=== PATIENT | female | born 1965 | race Caucasian/White ===

== ENCOUNTER 2016-09-18 17:16 | Emergency (ER) | payer MEDICARE, OTHER ==
[~2016-09-18] VITALS: Ht 152.4 cm; Wt 64.8 kg
[~2016-09-18 17:16] MED LIST: ASPI81TA3 PO; ATOR20TA38 PO; IBUP800T25 PO; OMEP40CA6 PO; SENN-53 PO; TRAM50TA2 PO
[2016-09-18 17:22] VITALS: Ht 152.4 cm; Wt 64.8 kg
== END 2016-09-18 19:53 | disposition left against medical advice (07) ==
LOC: FTE 17:16
DX: Z53.21 Procedure and treatment not carried out due to patient leaving prior to being seen by health care provider (principal)

== ENCOUNTER 2016-10-31 21:16 | Emergency (ER) | payer MEDICARE, OTHER ==
[~2016-10-31] VITALS: Ht 160 cm; Wt 63.5 kg
[2016-10-31 21:20] VITALS: Ht 160 cm; Wt 63.5 kg
[2016-10-31] MEDS ORDERED: KETOROLAC 30 MG INJ IV STA (21:52)
[2016-10-31] MEDS ORDERED: METOCLOPRAMIDE 10 MG INJ IV ONE (22:00)
[2016-10-31] MEDS ORDERED: DIPHENHYDRAMINE 50 MG INJ IV ONE (22:00)
[2016-10-31] MEDS ORDERED: SOD CHLORIDE 0.9% 1,000 ML IV ONE (22:00)
--- NOTE | 2016-10-31 22:52 | RADRPT ---
PROCEDURE: CT Brain without contrast. CLINICAL INDICATION: Left ear pain and head pain TECHNIQUE: A multiplanar CT of the brain was performed on a CT scanner utilizing axial imaging fro m the skull base through the vertex without IV contrast. The CTDIvol is 45.01 mGy and the DLP is 72 0.23 mGycm. One or more of the following dose reduction techniques were utilized: Automated exposu re control, adjustment of the mA and/or kV according to patient size, use of iterative reconstructio n technique. COMPARISON: None FINDINGS: No evidence of intracranial hemorrhage or abnormal extra-axial fluid collection. The brain parenchyma is normal attenuation morphology with preservation of boudreaux white differentiatio n and age appropriate size of the ventricles and subarachnoid spaces. Mucosal thickening in the ethmoid air cells and right maxillary sinus. The basal cisterns, posterior fossa contents, brainstem, craniocervical junction, orbits, pituitary axis, paranasal sinuses, mastoid air cells, and calvarium are unremarkable. IMPRESSION: 1. No intracranial hemorrhage or acute intracranial abnormality. RPTAT:AAJJ Physician Brandy Date Time Electronically viewed and signed by Physician Brandy on 10/31/2016 22:51 MARYSOL/
--- NOTE | 2016-10-31 23:16 | ERD ---
ER Documentation Chief Complaint Date/Time DATE: 10/31/16 Chief Complaint Left ear pain HPI The patient is a 51-year-old female who presents to the Emergency Department with complaint of left-sided ear pain. She reports that her pain began on Friday, with onset of aching left-sided ear pain with associated discharge. She was seen by her primary medical provider, who diagnosed her with left cerumen impaction, and advised her to follow up with a "specialist" for ear irrigation. In the meantime, he prescribed Debrox drops to be placed into her ear. She notes that she placed the Debrox drops into the left ear, but shortly afterwards her pain worsened, radiating into the head. She called her primary medical provider regarding her worsening symptoms, and was advised to stop using the drops. Today, when her pain did not improve, she went to the "specialist's" office, but was unable to be seen because they were too busy. Therefore, she decided to present to the Emergency Department for further evaluation. She notes a 7/10, aching pain to the left ear that radiates posteriorly and into the head. She denies any visual changes, diplopia, blurred vision, vision loss. Denies change in hearing. Denies bloody discharge from the ear. Denies recent swimming or large water exposure. Denies fevers, chills, neck pain, neck stiffness, sore throat, cough, nasal congestion, new rashes. She has not yet tried any other medication for pain relief. ROS All systems reviewed and are negative except as per history of present illness. Medications Home Meds Active Scripts Ibuprofen* (Motrin*) 600 Mg Tab, 600 MG PO Q6, #30 TAB Prov:FEI CHANG PA-C 10/31/16 Neomycin/Polymyxin/Hydrocort* (Cortisporin* Otic) 10 Ml Susp, 4 DROP LEFT EAR QID for 7 Days, EA Prov:FEI CHANG PA-C 10/31/16 Atorvastatin Calcium* (Atorvastatin Calcium*) 20 Mg Tablet, 20 MG PO QHS for 30 Days, #30 TAB Prov:TRISHA BERRY NP 05/22/16 Aspirin (Aspirin) 81 Mg Chew, 81 MG PO DAILY, #30 TAB.CHEW Prov:SHYANNE JUSTICE 05/18/16 Tramadol HCl (Tramadol HCl) 50 Mg Tablet, 50 MG PO Q6H Y for PAIN, #20 TAB Prov:SHYANNE JUSTICE 05/18/16 Sennosides* (Senna Lax*) 8.6 Mg Tablet, 2 TAB PO BID Y for CONSTIPATION, #30 TAB Prov:SHYANNE JUSTICE 05/18/16 Reported Medications Ibuprofen* (Ibuprofen*) 800 Mg Tab, 800 MG PO TID for PRN, TAB 05/16/16 Omeprazole* (Omeprazole*) 40 Mg Capsule.dr, 40 MG PO DAILY, #30 CAP 05/16/16 Allergies Allergies: Coded Allergies: No Known Allergies (Verified Allergy, Mild, 10/31/16) PMhx/Soc Medical and Surgical Hx: pt denies Medical Hx, pt denies Surgical Hx History of Surgery: Yes (see notes) Anesthesia Reaction: No Hx Neurological Disorder: No Hx Respiratory Disorders: No Hx Cardiac Disorders: No Hx Psychiatric Problems: No Hx Miscellaneous Medical Probl: Yes (see notes) Hx Alcohol Use: No Hx Substance Use: No Hx Tobacco Use: No Smoking Status: Never smoker Physical Exam Vitals Vital Signs Date Time Temp Pulse Resp B/P Pulse Ox O2 Delivery O2 Flow Rate FiO2 10/31/16 21:20 97.5 71 20 130/74 99 Physical Exam GENERAL: Well-developed, well-nourished, in no acute distress HEENT: Head is normocephalic, atraumatic. No scleral pallor or icterus. Pupils equal, round and reactive to light. Extraocular movements intact. Conjunctiva pink.No palatal petechiae. Uvula is midline. No trismus. No stridor. No excessive drooling. Tenderness to palpation and manipulation of the left auricle, pinna and tragus. Pain is noted with tragal pressure and when the auricle is manipulated and pulled, evident by facial wincing and patient pulling away. External ear canal is edematous and erythematous, with yellow purulent discharge noted. Left tympanic membrane only partially visualized, but appears to be intact, with no erythema or bulging. No visual evidence of tympanic membrane perforation. Minimal left mastoid tenderness. No preauricular tenderness. No bloody discharge. No foreign bodies noted. Hearing grossly intact. Right tympanic membrane is clear with no erythema, effusion or dulling of the light reflex. Right external auditory canal with no erythema or edema. NECK: Supple. No masses, no tenderness, no lymphadenopathy. Trachea midline. No nuchal rigidity. Full range of motion. RESPIRATORY: Lungs are clear to auscultation bilaterally. No rales, rhonchi or wheezing. Equal breath sounds. Normal expiratory effort. CARDIOVASCULAR: Regular rate and rhythm. S1 and S2 normal. GASTROINTESTINAL: Abdomen is soft, nontender, and nondistended. EXTREMITIES: No clubbing, cyanosis, or edema. Normal skin perfusion. Moving all extremities. Distal pulses are palpable, 2+ bilaterally. Capillary refill is less than 2 seconds. NEUROLOGIC: The patient is alert, awake, and oriented x 3. No focal neurologic deficits. INTEGUMENT: Skin is clean, dry and intact. No rashes, lesions or petechiae present. PSYCHIATRIC: Appropriate; Cooperative. Results 24 hrs Current Medications Medications (Trade) Dose Ordered Sig/Vera Route PRN Reason Start Time Stop Time Status Last Admin Dose Admin Diphenhydramine HCl (Benadryl) 25 mg ONCE ONCE IV 10/31/16 22:00 10/31/16 22:01 DC 10/31/16 22:02 Ketorolac Tromethamine (Toradol) 30 mg ONCE STAT IV 10/31/16 21:52 10/31/16 21:55 DC 10/31/16 22:02 Metoclopramide HCl 10 mg 10 mg ONCE ONCE IV 10/31/16 22:00 10/31/16 22:01 DC 10/31/16 22:02 Sodium Chloride (NS) 1,000 ml @ 1,000 mls/hr Q1H ONCE IV 10/31/16 22:00 10/31/16 22:59 DC 10/31/16 22:03 Procedures/MDM The patent's case was reviewed and discussed with ED supervising physician, who agrees with the plan of care including treatment and advanced imaging as appropriate. DIAGNOSTIC TESTS AND INTERPRETATION: PROCEDURE: CT Brain without contrast. CLINICAL INDICATION: Left ear pain and head pain TECHNIQUE: A multiplanar CT of the brain was performed on a CT scanner utilizing axial imaging from the skull base through the vertex without IV contrast. The CTDIvol is 45.01 mGy and the DLP is 720.23 mGycm. One or more of the following dose reduction techniques were utilized: Automated exposure control, adjustment of the mA and/or kV according to patient size, use of iterative reconstruction technique. COMPARISON: None FINDINGS: No evidence of intracranial hemorrhage or abnormal extra-axial fluid collection. The brain parenchyma is normal attenuation morphology with preservation of boudreaux white differentiation and age appropriate size of the ventricles and subarachnoid spaces Mucosal thickening in the ethmoid air cells and right maxillary sinus. The basal cisterns, posterior fossa contents, brainstem, craniocervical junction , orbits, pituitary axis, paranasal sinuses, mastoid air cells, and calvarium are unremarkable. IMPRESSION: No intracranial hemorrhage or acute intracranial abnormality. Physician Brandy Date Time Electronically viewed and signed by Physician Brandy on 10/31/2016 22:51 MEDICAL DECISION MAKING: This is a 51-year-old female presenting to the emergency department with a complaint of left ear pain, with drainage, and associated headache. The patient had edema and erythema of the left ear canal but normal light reflex and tympanic membrane. She had tenderness upon palpation and manipulation of the tragus and pinna. However, no foreign bodies were noted. No bloody discharge. She had mild left mastoid tenderness, and then CT imaging was performed. No significant abnormalities noted on CT imaging , no evidence of mastoiditis. There is currently no clinical evidence of malignant otitis externa, auricular hematoma, otomycosis, contact dermatitis, Rafael Keyes syndrome, tympanic membrane rupture, cholesteatoma, mastoiditis, foreign body, or otitis media. After rest and administration of Toradol, Reglan and Benadryl the patient reports no new complaints. Her pain has significantly improved. Upon my review and interpretation of the patient's presentation and overall ER course, I believe the patient's symptoms are most consistent with acute otitis externa and headache, now resolved. At this time, the patient is in stable condition and therefore can be discharged with a prescription for Ibuprofen and Cortisporin otic drops and strict return precautions for signs of deteriorating or worsening condition. She is advised to follow up with a primary medical provider for reevaluation and further management within 1-2 days or to return to the ER sooner for any new or worsening symptoms. I shared the medical decision making with the patient at length and in great detail, and she verbally understands and agrees with plan for further observation and care as an outpatient. At the time of discharge, all questions were answered. Departure Diagnosis: Primary Impression: Left otitis externa Otitis externa type: unspecified type Chronicity: acute Qualified Code: H60.502 - Acute otitis externa of left ear, unspecified type Additional Impression: Headache Headache type: unspecified Headache chronicity pattern: acute headache Intractability: not intractable Qualified Code: R51 - Acute nonintractable headache, unspecified headache type Condition: Stable Patient Instructions: External Ear Infection (Adult), Self-Care for Headaches Additional Instructions: Llame al doctor MAANA y franko ajay LISA PARA DENTRO DE 1-2 CEDILLO.Dgale a la secretaria que nosotros le instruimos hacer esta lisa.Avise o llame si herndon condicin se empeora antes de la lisa. Regresa aqui si peor o no mejor. FEI CHANG PA-C Oct 31, 2016 23:16
[2016-10-31] MEDS ORDERED: NPH10OT LEFT EAR (23:17)
[2016-10-31] MEDS ORDERED: IBUP-1542 PO (23:17)
== END 2016-10-31 23:24 | disposition home or self-care (01) ==
LOC: FTE 21:16
DX: H60.502 Unspecified acute noninfective otitis externa, left ear (principal); R51 Headache; Z79.82 Long term (current) use of aspirin
CPT/HCPCS: 70450; J1200; J1885; J2765; J7030; 96374; 96375

== ENCOUNTER 2017-04-18 09:25 | Emergency (ER) | payer MEDICARE, OTHER ==
[~2017-04-18] VITALS: Ht 160 cm; Wt 68.0 kg
[~2017-04-18 09:25] MED LIST changes: +IBUP-1542 PO; +NPH10OT LEFT EAR
[2017-04-18 09:30] VITALS: Ht 160 cm; Wt 68.0 kg
[2017-04-18] MEDS ORDERED: ONDANSETRON 4 MG INJ IV STA (11:49)
[2017-04-18] MEDS ORDERED: KETOROLAC 15 MG INJ IV STA (11:49)
[2017-04-18] MEDS ORDERED: SOD CHLORIDE 0.9% 500 ML IV STA (11:49)
[2017-04-18] MEDS ORDERED: ALPRAZOLAM 1 MG TAB PO ONE (12:00)
[2017-04-18 12:27] LABS: BASOPHILS % 0.6 % (0.0-2.0); EOSINOPHILS # 0.2 10^3/ul (0.0-0.5); EOSINOPHILS % 2.6 % (0.0-7.0); HEMATOCRIT 40.3 % (37.0-47.0); HEMOGLOBIN 13.6 g/dl (12.0-16.0); LYMPHOCYTES % 48.6 % (15.0-51.0); MEAN CORPUSCULAR HEMOGLOBIN 31.4 pg (29.0-33.0); MEAN CORPUSCULAR HGB CONC 33.7 g/dl (32.0-37.0); MEAN CORPUSCULAR VOLUME 93.1 fl (82.0-101.0); MONOCYTE # 0.3 10^3/ul (0.3-0.9); MONOCYTES % 5.3 % (0.0-11.0); NEUTROPHIL # 2.7 10^3/ul (1.6-7.5); NEUTROPHILS % 42.7 % (39.0-77.0); PLATELET COUNT 258 10^3/UL (140-415); RED BLOOD COUNT 4.33 10^6/ul (4.20-5.40); RED CELL DISTRIBUTION WIDTH 12.6 % (11.5-14.5); WHITE BLOOD COUNT 6.2 10^3/ul (4.8-10.8)
[2017-04-18 12:29] LABS: ADD UMIC NO; UR ASCORBIC ACID NEGATIVE (NEGATIVE); UR BILIRUBIN (Dip) NEGATIVE (NEGATIVE); UR BLOOD (Dip) NEGATIVE (NEGATIVE); UR CLARITY CLEAR (CLEAR); UR COLOR YELLOW (YELLOW); UR GLUCOSE (Dip) NEGATIVE (NEGATIVE); UR KETONES (Dip) NEGATIVE (NEGATIVE); UR LEUKOCYTE ESTERASE (Dip) NEGATIVE Leu/ul (NEGATIVE); UR NITRITE (Dip) NEGATIVE (NEGATIVE); UR SPECIFIC GRAVITY (Dip) 1.019 (1.003-1.030); UR TOTAL PROTEIN (Dip) NEGATIVE (NEGATIVE); UR UROBILINOGEN (Dip) NEGATIVE (NEGATIVE)
[2017-04-18 12:49] LABS: ALBUMIN 4.3 g/dl (3.3-4.9); ALBUMIN/GLOBULIN RATIO 1.3; BILIRUBIN,INDIRECT 0.7 mg/dl (0-1.1); BILIRUBIN,TOTAL 0.7 mg/dl (0.2-1.3); CALCIUM 9.4 mg/dl (8.4-10.2); CREATININE 0.55 mg/dl (0.44-1.00); POTASSIUM 4.1 mmol/L (3.5-5.1); TOTAL PROTEIN 7.6 g/dl (6.1-8.1)
[2017-04-18] MEDS ORDERED: MAG355OR14 PO (13:30)
[2017-04-18] MEDS ORDERED: ALPR0.5T PO (13:30)
[2017-04-18] MEDS ORDERED: NAPR-260 PO (13:30)
--- NOTE | 2017-04-18 13:35 | RADRPT ---
PROCEDURE: US Pelvis Transabdominal and Transvaginal. CLINICAL INDICATION: Pelvic pain. TECHNIQUE: Multiple sonographic images of the pelvis were obtained utilizing boudreaux scale, Doppler a nd color flow imaging with transabdominal and endovaginal technique. The images were reviewed on a PACS workstation. COMPARISON: US PELVIS 03/02/2016 FINDINGS: The uterus is visualized and measures 7.4 x 4.8 x 5.2 cm. Endometrial echo complex is not well visua lized. No uterine masses are identified. The ovaries are not well visualized. No adnexal masses or pelvic free fluid are noted. IMPRESSION: Unremarkable uterus. Endometrial echo complex not well visualized. If characterization of this structure is needed repeat exam or CT/MRI is recommended. Ovaries not well visualized. If characterization of these structures is needed repeat exam or CT/MRI is recommended. If further characterization of the organs of the pelvis is needed MRI should be considered. RPTAT: AA .Ashish Lucio MD, Date Time Electronically viewed and signed by .Ashish Lucio MD, on 04/18/2017 13:35 .P/
[2017-04-18 14:11] VITALS: BP 135/78; PULSE 78; RESP 20; TEMP 98.7
--- NOTE | 2017-04-18 17:39 | ERD ---
ER Documentation Chief Complaint Date/Time DATE: 04/18/17 TIME: 17:35 Chief Complaint Complains of abdominal pain x 3 days HPI 51-year-old woman complains of lower abdominal pain similar multiple previous episodes. She states pain has been nonexertional nonradiating 3 days. She has had multiple previous episodes in the past and multiple CT scans which have all been unremarkable. She denies dysuria, no vaginal discharge, no fevers or chills, no weight loss, no chest pain or shortness of breath. ROS All systems reviewed and are negative except as per history of present illness. Medications Home Meds Active Scripts Naproxen* (Naprosyn*) 500 Mg Tablet, 500 MG PO BID Y for PAIN AND/OR INFLAMMATION, #30 TAB Prov:MEHDI ANDRADE MD 04/18/17 Alprazolam* (Xanax*) 0.5 Mg Tab, 0.5 MG PO TID for ANXIETY, #15 TAB Prov:MEHID ANDRADE MD 04/18/17 Mag Hydrox/Al Hydrox/Simeth (Maalox Advanced Suspension) 355 Ml Oral.susp, 2 TSP PO TID for PAIN, #24 OZ Prov:MEHDI ANDRADE MD 04/18/17 Ibuprofen* (Motrin*) 600 Mg Tab, 600 MG PO Q6, #30 TAB Prov:FEI CHANG PA-C 10/31/16 Neomycin/Polymyxin/Hydrocort* (Cortisporin* Otic) 10 Ml Susp, 4 DROP LEFT EAR QID for 7 Days, EA Prov:FEI CHANG PA-C 10/31/16 Atorvastatin Calcium* (Atorvastatin Calcium*) 20 Mg Tablet, 20 MG PO QHS for 30 Days, #30 TAB Prov:TRISHA BERRY NP 05/22/16 Aspirin (Aspirin) 81 Mg Chew, 81 MG PO DAILY, #30 TAB.CHEW Prov:SHYANNE JUSTICE 05/18/16 Tramadol HCl (Tramadol HCl) 50 Mg Tablet, 50 MG PO Q6H Y for PAIN, #20 TAB Prov:SHYANNE JUSTICE 05/18/16 Sennosides* (Senna Lax*) 8.6 Mg Tablet, 2 TAB PO BID Y for CONSTIPATION, #30 TAB Prov:SHYANNE JUSTICE 05/18/16 Reported Medications Ibuprofen* (Ibuprofen*) 800 Mg Tab, 800 MG PO TID for PRN, TAB 05/16/16 Omeprazole* (Omeprazole*) 40 Mg Capsule.dr, 40 MG PO DAILY, #30 CAP 05/16/16 Allergies Allergies: Coded Allergies: No Known Allergies (Verified Allergy, Mild, 10/31/16) PMhx/Soc Chronic abdominal pain, gastritis, anxiety History of Surgery: Yes (L leg sx, L ovarian sx) Anesthesia Reaction: No Hx Neurological Disorder: No (Migraine CHRISTIANSON) Hx Respiratory Disorders: No Hx Cardiac Disorders: No Hx Psychiatric Problems: No Hx Miscellaneous Medical Probl: Yes (Hyperlipidemia, Constipation) Hx Alcohol Use: No Hx Substance Use: No Hx Tobacco Use: No Smoking Status: Never smoker FmHx Family History: No diabetes Physical Exam Vitals Vital Signs Date Time Temp Pulse Resp B/P Pulse Ox O2 Delivery O2 Flow Rate FiO2 04/18/17 14:11 98.7 78 20 135/78 98 Room Air 04/18/17 09:30 98.4 73 20 113/80 97 Physical Exam GENERAL: Well-developed, well-nourished, well-hydrated, appears anxious, afebrile HEENT: Moist mucous membranes, pink conjunctiva, no cervical spine tenderness or step-off deformities, no goiter, no jaundice or icterus, extraocular movements intact without pain. No submandibular induration, and no pharyngeal erythema NEURO: Alert and oriented 3, cranial nerves II through XII intact bilaterally, pupils equal round reactive to light, no focal deficits or facial asymmetry, sensation intact distally Strength 5/5 in upper and lower extremities bilaterally CARDIAC: Regular rate and rhythm, no murmurs rubs or gallops LUNGS: Clear bilaterally no wheezing crackles or stridor ABDOMEN: Soft nontender, no guarding, no rigidity, no rebound, no psoas sign no obturator sign. Normoactive bowel sounds SKIN: Warm and dry to touch, no abrasions, contusions, or hematomas, no lacerations, no ecchymosis, no target lesions, and without ulcers EXTREMITIES: No clubbing cyanosis or edema, calves are bilaterally symmetrical, no Homans sign, no popliteal cord sign. Distal pulses equal and bilateral PSYCH: Anxious Result Diagram: 04/18/17 1210 04/18/17 1210 Results 24 hrs Laboratory Tests Test 04/18/17 12:10 White Blood Count 6.210^3/ul Red Blood Count 4.3310^6/ul Hemoglobin 13.6g/dl Hematocrit 40.3% Mean Corpuscular Volume 93.1fl Mean Corpuscular Hemoglobin 31.4pg Mean Corpuscular Hemoglobin Concent 33.7g/dl Red Cell Distribution Width 12.6% Platelet Count 39385^3/UL Mean Platelet Volume 10.0fl Neutrophils % 42.7% Lymphocytes % 48.6% Monocytes % 5.3% Eosinophils % 2.6% Basophils % 0.6% Nucleated Red Blood Cells % 0.0/100WBC Neutrophils # 2.710^3/ul Lymphocytes # 3.010^3/ul Monocytes # 0.310^3/ul Eosinophils # 0.210^3/ul Basophils # 0.010^3/ul Nucleated Red Blood Cells # 0.010^3/ul Urine Color YELLOW Urine Clarity CLEAR Urine pH 6.0 Urine Specific [place] 1.019 Urine Ketones NEGATIVEmg/dL Urine Nitrite NEGATIVEmg/dL Urine Bilirubin NEGATIVEmg/dL Urine Urobilinogen NEGATIVEmg/dL Urine Leukocyte Esterase NEGATIVELeu/ul Urine Hemoglobin NEGATIVEmg/dL Urine Glucose NEGATIVEmg/dL Urine Total Protein NEGATIVEmg/dl Sodium Level 142mmol/L Potassium Level 4.1mmol/L Chloride Level 107mmol/L Carbon Dioxide Level 27mmol/L Anion Gap 12 Blood Urea Nitrogen 19mg/dl Creatinine 0.55mg/dl Glucose Level 92mg/dl Calcium Level 9.4mg/dl Total Bilirubin 0.7mg/dl Direct Bilirubin 0.00mg/dl Indirect Bilirubin 0.7mg/dl Aspartate Amino Transf (AST/SGOT) 40IU/L Alanine Aminotransferase (ALT/SGPT) 65IU/L Alkaline Phosphatase 146IU/L Total Protein 7.6g/dl Albumin 4.3g/dl Globulin 3.30g/dl Albumin/Globulin Ratio 1.30 Lipase 79U/L Current Medications Medications (Trade) Dose Ordered Sig/Vera Route PRN Reason Start Time Stop Time Status Last Admin Dose Admin Sodium Chloride (NS) 500 ml @ 500 mls/hr Q1H STAT IV 04/18/17 11:49 04/18/17 12:48 DC 04/18/17 12:22 Ondansetron HCl (Zofran Inj) 4 mg ONCE STAT IV 04/18/17 11:49 04/18/17 11:54 DC 04/18/17 12:22 Ketorolac Tromethamine (Toradol) 15 mg ONCE STAT IV 04/18/17 11:49 04/18/17 11:54 DC 04/18/17 12:22 Alprazolam (Xanax) 1 mg ONCE ONCE PO 04/18/17 12:00 04/18/17 12:01 DC 04/18/17 12:22 Procedures/MDM IV line was established patient was placed on quality assurance monitor rhythm strip revealed a sinus rhythm at about 80 bpm with upright P and T waves. Patient was afebrile. I administered 500 cc normal saline intravenously, Toradol 15 mg IV 1, Zofran 4 mg IV 1 and alprazolam 1 mg p.o. for her symptoms. Nonobstetric pelvic ultrasound and abdominal ultrasounds were performed, no acute inflammatory infectious pathology noted, no masses noted, no free fluid noted. Please refer to radiologist dictation for full report. CBC and electrolytes are normal, liver function tests are normal, troponin was negative. Differential diagnoses considered, included but not limited to acute coronary syndrome, pulmonary embolism, aortic dissection, abdominal aortic aneurysm, sepsis, stroke, meningitis, encephalitis, pneumonia, appendicitis, cholecystitis , bowel obstruction, pyelonephritis, nephrolithiasis, cystitis, as well as metabolic, hematologic, and electrolyte abnormalities. As well as abscess, cellulitis, fractures, and dislocations. Patient feels much better at this time, and vital signs are normal, symptoms have improved. I did give strict instructions to return to the ED if symptoms continue or worsen, patient will otherwise follow-up with primary care physician. Patient understood instructions and agreed to plan. Disclaimer: Inadvertent spelling and grammatical errors are likely due to EHR/ dictation software use and do not reflect on the overall quality of patient care. Also, please note that the electronic time recorded on this note does not necessarily reflect the actual time of the patient encounter. Departure Diagnosis: Primary Impression: Abdominal pain Abdominal location: lower abdomen, unspecified Qualified Code: R10.30 - Lower abdominal pain Condition: Good Patient Instructions: Abdominal Pain Referrals: YADI JACOBS MD (PCP) MEHDI ANDRADE MD Apr 18, 2017 17:39
== END 2017-04-18 14:11 | disposition home or self-care (01) ==
LOC: E/R 09:25
DX: R10.30 Lower abdominal pain, unspecified (principal); Z79.82 Long term (current) use of aspirin
CPT/HCPCS: 36415; 76830; 76856; 80053; 81003; 83690; 85025; 96374; 96375; 99285; J1885; J2405; J7040

== ENCOUNTER 2017-06-24 20:31 | Emergency (ER) | payer MEDICARE, OTHER ==
[~2017-06-24] VITALS: Ht 165.1 cm; Wt 67.2 kg
[~2017-06-24 20:31] MED LIST changes: +ALPR0.5T PO; +MAG355OR14 PO; +NAPR-260 PO
[2017-06-24 20:37] VITALS: Ht 165.1 cm; Wt 67.2 kg
--- NOTE | 2017-06-24 22:12 | ERD ---
ER Documentation Chief Complaint Chief Complaint Rt 3rd digit dog bite 1 hour [employer]. no active bleeding +CMS HPI This 51 year old female presents to ED for evaluation of dog bite. pt was bitten right hand 3rd digit, by family dog, 3 puncture wounds noted, wound edematous not actively bleeding at this time patient denies any numbness or tingling to fingers or fingertips,, denies loss of strength, sensation, or range of motion of hand ROS All systems reviewed and are negative except as per history of present illness. Medications Home Meds Active Scripts Ibuprofen* (Motrin*) 600 Mg Tab, 600 MG PO Q6, #30 TAB Prov:KEMAR,JESSIKA 06/24/17 Amoxicillin/Potassium Clav (Amox-Clav 875-125 mg Tablet) 875-125 mg Tab, 1 TAB PO BID for 10 Days, #20 TAB Prov:KEMAR,JESSIKA 06/24/17 Naproxen* (Naprosyn*) 500 Mg Tablet, 500 MG PO BID Y for PAIN AND/OR INFLAMMATION, #30 TAB Prov:MEHDI ANDRADE MD 04/18/17 Alprazolam* (Xanax*) 0.5 Mg Tab, 0.5 MG PO TID for ANXIETY, #15 TAB Prov:MEHDI ANDRADE MD 04/18/17 Mag Hydrox/Al Hydrox/Simeth (Maalox Advanced Suspension) 355 Ml Oral.susp, 2 TSP PO TID for PAIN, #24 OZ Prov:MEHDI ANDRADE MD 04/18/17 Ibuprofen* (Motrin*) 600 Mg Tab, 600 MG PO Q6, #30 TAB Prov:FEI CHANG PA-C 10/31/16 Neomycin/Polymyxin/Hydrocort* (Cortisporin* Otic) 10 Ml Susp, 4 DROP LEFT EAR QID for 7 Days, EA Prov:FEI CHANG PA-C 10/31/16 Atorvastatin Calcium* (Atorvastatin Calcium*) 20 Mg Tablet, 20 MG PO QHS for 30 Days, #30 TAB Prov:TRISHA BERRY NP 05/22/16 Aspirin (Aspirin) 81 Mg Chew, 81 MG PO DAILY, #30 TAB.CHEW Prov:SHYANNE JUSTICE 05/18/16 Tramadol HCl (Tramadol HCl) 50 Mg Tablet, 50 MG PO Q6H Y for PAIN, #20 TAB Prov:SHYANNE JUSTICE 05/18/16 Sennosides* (Senna Lax*) 8.6 Mg Tablet, 2 TAB PO BID Y for CONSTIPATION, #30 TAB Prov:SHYANNE JUSTICE 05/18/16 Reported Medications Ibuprofen* (Ibuprofen*) 800 Mg Tab, 800 MG PO TID for PRN, TAB 05/16/16 Omeprazole* (Omeprazole*) 40 Mg Capsule.dr, 40 MG PO DAILY, #30 CAP 05/16/16 Allergies Allergies: Coded Allergies: No Known Allergies (Verified Allergy, Mild, 06/24/17) PMhx/Soc History of Surgery: Yes (L leg sx, L ovarian sx) Anesthesia Reaction: No Hx Neurological Disorder: No (Migraine CHRISTIANSON) Hx Respiratory Disorders: No Hx Cardiac Disorders: No Hx Psychiatric Problems: No Hx Miscellaneous Medical Probl: Yes (Hyperlipidemia, Constipation) Hx Alcohol Use: No Hx Substance Use: No Hx Tobacco Use: No Physical Exam Vitals Vitals stable, triage notes reviewed Physical Exam Const well-nourished well-appearing well-hydrated 51-year-old female no acute distress Ext: Hand -right: Skin: Right hand, third digit presents with 3 puncture wounds, soft tissue edema, no laceration, or bony deformity Compartments: Soft Sensation: Intact shoulder/pinky/middle finger/thumb web space Bones: Nontender Snuffbox: Nontender Joints: No effusion Wrist: Flex/Ext: Normal Uln/Radial deviation: Normal Pron/Supination Normall Finger: Flex/Ext: Normal Add/abd: Normal Thumb: Flex/Ext: Normal Opposition: Normal Thumbs up: Normal Neur: Awake and alert Psych: Normal Mood and Affect Results 24 hrs Current Medications Medications (Trade) Dose Ordered Sig/Vera Route PRN Reason Start Time Stop Time Status Last Admin Dose Admin Ibuprofen (Motrin) 600 mg ONCE ONCE PO 06/24/17 22:30 06/24/17 22:31 DC 06/24/17 22:32 Diphtheria/ Tetanus/Acell Pertussis (Adacel) 0.5 ml ONCE ONCE IM* 06/24/17 22:30 06/24/17 22:31 DC 06/24/17 22:32 Procedures/MDM This 51-year-old female presents to emergency department after being bit by her family members Agustin, patient has 3 puncture wounds noted on right hand third finger. Finger is edematous, warm to touch and tender. Emergency room course includes history and physical exam, good wound care was provided, tetanus updated, patient will be started on Augmentin 875 1 tab p.o. twice daily 10 days, follow-up with primary care physician in 48 hours or return to emergency department for wound check. Patient is stable with no new complaints during ER course, clinically there is no current evidence to suggest cellulitis , necrotizing fasciitis, or any other emergent condition appearing to require further evaluation or hospitalization. I feel the patient is stable for discharge at this time. I have discussed results, examination findings, the treatment plan with the patient and family present prior to discharge. Indications for emergent reevaluation, side effects of medication were also discussed. All questions were answered. Patient verbalizes understanding and and agrees with plan of care Departure Diagnosis: Primary Impression: Dog bite of finger Encounter type: initial encounter Qualified Code: S61.259A - Dog bite of finger, initial encounter Condition: Good Patient Instructions: Dog Bite Additional Instructions: Thank you for for coming to [facility] for your care today. Please ask your nurse or provider if you have questions about your care today and do not leave until all your questions have been answered. Please use any medications given as directed and follow-up with your doctor (or the doctor you were referred to) in the next 2-3 days. If you do not have a primary care doctor you may follow up at the [facility] (listed below). You may also use motrin and tylenol as needed for fever and/or pain unless instructed otherwise by your provider or nurse. Indications for more urgent follow-up have been discussed, but you may return to the Emergency Department at ANY time for any worrisome or worsening symptoms. If you have abdominal pain, please know that no test or exam you received is perfect and you should follow up within 8 hours for continued pain. If you had any imaging studies today, such as an X-Ray or CT Scan, these studies will be reviewed later by a radiologist. You will be called if there are important findings that were not identified today, so make sure the contact information you provided at registration is correct. If you received any narcotic pain control medicine today, such as Vicodin, Morphine or Dilaudid, your coordination and judgment may be affected for a number of hours. Please do not drive or operate heavy machinery, and you may want someone to assist you at home. If you were given a prescription for narcotic medication, be aware that it is very addictive- use sparingly and only if necessary. JESSIKA REINOSO Jun 24, 2017 22:12
[2017-06-24] MEDS ORDERED: DIPHTH/TET/ACEL PERTUSS (ADULT) 0.5 ML VIAL IM* ONE (22:30)
[2017-06-24] MEDS ORDERED: IBUPROFEN 600 MG TAB PO ONE (22:30)
[2017-06-24] MEDS ORDERED: IBUP-1542 PO (23:16)
[2017-06-24] MEDS ORDERED: AMOX1TAB10 PO (23:16)
== END 2017-06-24 23:29 | disposition home or self-care (01) ==
LOC: FTE 20:31
DX: S61.252A Open bite of right middle finger without damage to nail, initial encounter (principal); W54.0XXA Bitten by dog, initial encounter; Y92.9 Unspecified place or not applicable; Z23 Encounter for immunization; Z79.82 Long term (current) use of aspirin
CPT/HCPCS: 90471; 90715

== ENCOUNTER 2017-07-21 19:47 | Emergency (ER) | END 2017-07-21 23:32 | disposition home or self-care (01) ==

== ENCOUNTER 2018-04-06 20:54 | Emergency (ER) | END 2018-04-07 03:06 | disposition home or self-care (01) ==